=== PATIENT | male | born 1970 | race Caucasian/White ===

== ENCOUNTER 2022-07-23 09:08 | Outpatient (CLI) | payer OTHER, SELFPAY ==
[2022-07-23 11:38] LABS: Albumin* 4.7 g/dL (3.3-5.0); Chloride* 105 mmol/L (96-114); Sodium* 140 mmol/L (135-149)
[2022-07-23 11:39] LABS: Potassium* 4.5 mmol/L (3.6-5.1)
[2022-07-23 11:40] LABS: Cholesterol* 176 mg/dL (90-199)
[2022-07-23 11:41] LABS: Alkaline Phosphatase* 86 U/L (40-150); Aspartate Amino Transferase* 32 U/L (12-35); Bilirubin Total* 1.1 mg/dL (0.1-1.5); Blood Urea Nitrogen* 21 mg/dL (7-30); Carbon Dioxide* 26 mmol/L (20-32); Creatinine* 1.1 mg/dL (0.5-1.5); Estimated Glomerular Filt Rate 80 ml/min; Glucose* 153 mg/dL (60-115); Total Protein* 7.5 g/dL (6.0-8.3)
[2022-07-23 11:42] LABS: Alanine Aminotransferase* 47 U/L (4-50); Calcium* 9.1 mg/dL (8.4-10.6); HDL Cholesterol* 45 mg/dL (>=40); LDL Cholesterol Calculated 104 mg/dL (<100); Triglycerides* 133 mg/dL (40-149)
[2022-07-23 11:47] LABS: Creatinine Urine 273.3 mg/dL
[2022-07-23 11:48] LABS: Microalbumin Creatinine Ratio 0 mg/g (0-30); Microalbumin Urine < 1 mg/dL
[2022-07-23 12:13] LABS: PSA Screen* 0.68 ng/mL (0.10-4.00)
== END 2022-07-23 09:09 | disposition home or self-care (01) ==
PROVIDERS: PCP Family Medicine; Visit Provider Internal Medicine
DX: Z00.00 Encounter for general adult medical examination without abnormal findings (principal); E11.9 Type 2 diabetes mellitus without complications; I10 Essential (primary) hypertension; Z12.5 Encounter for screening for malignant neoplasm of prostate; Z13.6 Encounter for screening for cardiovascular disorders
CPT/HCPCS: 80053; 80061; 82043; 82570; 84153

== ENCOUNTER 2023-07-10 23:16 | Emergency (ER) | payer OTHER, SELFPAY ==
[2023-07-10 23:22] VITALS: BP 143/85; PULSE 89; RESP 20; TEMP 36.6; O2SAT 99; BMI 39.9
[2023-07-10] MEDS: LIDOCAINE 1% 5 ml (pf) 5 ML VIAL INJECTION (23:40)
--- NOTE | 2023-07-10 23:41 | ED.SKABFB ---
HPI - Skin/Abscess/Foreign Bdy General Date Seen: 07/10/23 Chief complaint: Skin/Abscess/Foreign Body Stated complaint: Infection on L Middle Finger Source: patient Mode of arrival: ambulatory Limitations: no limitations History of Present Illness HPI narrative: Patient is a 53-year-old male presenting to emergency department for infection to his left middle finger just lateral to the nail bed. States he 1st noticed the symptoms yesterday in the be getting worse today. Denies fevers, chills, pain with flexion or extension of the finger. States he does cut his fingernails very shortened thinks he has an ingrown fingernail. No other concerns at this time Related Data Home Medications Medication Instructions Recorded Confirmed aspirin 81 mg tablet,delayed 81 mg PO DAILY 08/07/22 07/10/23 release Previous Rx's Medication Instructions Recorded lisinopril 20 mg tablet 20 mg PO QDAY #90 tabs 08/07/22 Allergies Allergy/AdvReac Type Severity Reaction Status Date / Time No Known Allergies Allergy Unknown Verified 07/10/23 23:24 Review of Systems Narrative: Negative unless stated HPI PFSH PFSH Medical History Erectile dysfunction ?N52.9 - Male erectile dysfunction, unspecified (ICD-10) Anxiety ?F41.9 - Anxiety disorder, unspecified (ICD-10) Surgical History History of spinal fusion ?Z98.1 - Arthrodesis status (ICD-10) History of elbow surgery ?Z98.890 - Other specified postprocedural states (ICD-10) Status post cervical spinal fusion ?Z98.1 - Arthrodesis status (ICD-10) History of adenoidectomy ?Z90.89 - Acquired absence of other organs (ICD-10) Family History Father Coronary artery disease, Onset Age: 80 Sister Colonic polyp Social History Smoking Status: Never smoker Exam Narrative: Exam Narrative: Const: Well-nourished, Well-developed, in mild distress Eyes: PERRL, no conjunctival injection, and symmetrical lids HENT: Atraumatic external nose and ears. Moist mucous membranes. MSK:Extremities w/o deformity, Normal Active ROM Skin: Warm, Dry. Erythema and swelling at the edge of left middle finger nail bed Neuro: Normal Muscle tone, No focal neurological deficits. Psych: Awake, Alert, & Oriented x3. Appropriate mood and affect. Const: Vital Signs, click to edit/add: Vital Signs - 24 hr 07/10/23 23:22 Temperature 97.9 F Pulse Rate [Right Pulse Oximeter] 89 Respiratory Rate 20 Blood Pressure [Ri ght Upper Arm] 143/85 H Pulse Oximetry 99 Oxygen Delivery Me thod Room Air Course Vital Signs Vital signs: Initial Vital Signs Temperature 97.9 F 07/10/23 23:22 Temperature Source Temporal Artery Scan 07/10/23 23:22 Pulse Rate 89 07/10/23 23:22 Respiratory Rate 20 07/10/23 23:22 Blood Pressure 143/85 H 07/10/23 23:22 Blood Pressure Mean 104 07/10/23 23:22 Blood Pressure Position Sitting 07/10/23 23:22 Pulse Oximetry 99 07/10/23 23:22 Oxygen Delivery Method Room Air 07/10/23 23:22 Vital Signs Temperature 97.9 F 07/10/23 23:22 Pulse Rate 89 07/10/23 23:22 Respiratory Rate 20 07/10/23 23:22 Blood Pressure 143/85 H 07/10/23 23:22 Pulse Oximetry 99 07/10/23 23:22 Oxygen Delivery Method Room Air 07/10/23 23:22 Temperature 97.9 F 07/10/23 23:22 Pulse Rate 89 07/10/23 23:22 Respiratory Rate 20 07/10/23 23:22 Blood Pressure 143/85 H 07/10/23 23:22 Pulse Oximetry 99 07/10/23 23:22 Oxygen Delivery Method Room Air 07/10/23 23:22 MDM - Skin/Abscess/Foreign Bdy MDM Narrative Medical decision making narrative: Patient is 53-year-old male presenting for paronychia. Ultrasound was done neck cannot see any clear an obvious abscess pockets. I did remove the lateral edge of the nail bed where the paronychia was. When I removed the portion of the nail while mL of purulent material came out. The swelling that area went down greatly and is now soft. He tolerated this procedure well. I did start him on Augmentin. He is agreeable to for discharge. Patient was given strict return precautions for signs of worsening infection. Discharge Plan Discharge Clinical Impression: Paronychia Patient Disposition: Home, Self-Care Condition: Improved Instructions: Paronychia (ED) Additional Instructions: Take the Augmentin as directed. Return to the emergency department for signs of worsening infection Prescriptions: No Action aspirin 81 mg tablet,delayed release (DR/EC) 81 mg PO DAILY lisinopril 20 mg tablet 20 mg PO QDAY Qty: 90 3RF Follow Up/Referrals: Sky Reid MD [Primary Care Provider] - Stand Alone Forms: [facility] Info Instructions Procedures I/D Type: abscess Site: hand Post procedure diagnosis: Paronychia with abscess Name of person performing procedure: Venancio Em Side (if applicable): left Local Anesthetic: lidocaine 1% (Digital block) Amount of anesthesia used (mL): 5 Technique: other (Removed adjuvant ingrown fingernail) Amount of fluid expressed (mL): 1 Packing used?: none Estimated blood loss (if any): none
[2023-07-10 23:50] VITALS: BP 139/79; PULSE 85; RESP 20; TEMP 36.8; O2SAT 99
[2023-07-10 23:51] VITALS: BP 139/79; PULSE 85; RESP 20; TEMP 36.8
== END 2023-07-10 23:59 | disposition home or self-care (01) ==
PROVIDERS: Emergency Provider Student in an Organized Health Care Education/Training Program; PCP Internal Medicine
DX: L03.012 Cellulitis of left finger (principal)
CPT/HCPCS: 10060; 99282; 99283

== ENCOUNTER 2023-09-23 07:30 | Outpatient (CLI) | payer OTHER, SELFPAY ==
--- OUTSIDE RECORDS SUMMARY | 2023-09-23 15:38 | XMS_ITS | Clinical Summary ---
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 0 11/04/2021 Active Active Problems No known active problems Social History Tobacco Use Types Packs/Day Years Used Date Smoking Tobacco: Never Smokeless Tobacco: Current Snuff Social Connections Answer Date Recorded Frequency of Communication with Friends and Fami ly Not on file 07/20/2023 Sex and Gender Information Value Date Recorded Sex Assigned at Not on file Gender Identity Not on file Sexual Orientation Not on file Obstetrics History Last Filed Vital Signs Vital Sign Reading Time Taken Comments Blood Pressure 129/75 03/04/2006 8:00 AM CDT Pulse 81 03/04/2006 8:00 AM CDT Temperature 37 ??C (98.6 ??F) 03/04/2006 8:00 AM CDT Respiratory Rate 16 03/04/2006 8:00 AM CDT Oxygen Saturation 93% 03/04/2006 8:00 AM CDT Inhaled Oxygen Concentration - - Weight 104.2 kg (229 lb 11.5 oz) 03/03/2006 9:47 AM CDT Height 175 cm (5' 8.9) 03/03/2006 9:47 AM CDT Body Mass Index 34.02 03/03/2006 9:47 AM CDT Plan of Treatment Upcoming Encounters Date Type Department Care Team ([facility] st Contact Info) Description 04/15/2024 1:00 PM CDT Office Visit [facility] [address] [place] [address] Yanet Hansen, OD [address] [facility] [place] [address] Health Maintenance Due Date Last Done Comments COVID-19 vaccine series (#1) 1969 Tdap 1980 Depression screening for age 12+ 1981 HIV for age 15-65 1984 BMI (ht and wt on same day) for age 18+ 1987 Hepatitis C screening for ag e 18-79 1987 Tetanus booster 1989 Colonoscopy through age 75 2014 Lipids for age 45-75 2014 Zoster (shingles) series for age 50+ (1 of 2) 2019 Influenza for age 50-64 04/04/2023 Pneumococcal series for age 6-64 Aged Out No longer eligible based on patient's age to complete this topic Medical Devices Implanted Type Area Digital Marketing Analyst Device Identifier Shelf Expiration Date Model / Serial / Lot [id number] Bone [id number] [[id number] Implanted:Qty: 1 on 03/03/2006 at [facility] Explanted:at [facility] (Quantity not on file) Bone Implants Spine [employer] 10/04/2010 [id number] / [id number] / [id number] [id number] [[id number]] Implanted:Qty: 1 on 03/03/2006 at [facility] Explanted:at [facility] (Quantity not on file) Spine [employer] 12/13/[id number] / [id number] / Plate Cerv 25mm Premier - [id number] Implanted:Qty: 1 on 03/03/2006 at [facility] Spine [employer] [id number] / / Screw 4.0x16 - [id number] Implanted:Qty: 4 on 03/03/2006 at [facility] Spine [employer] [id number] / / Advance Directives Latest Code Status on File Code Status Date Activated Date Inactivated Comments Full Code 03/03/2006 2:32 PM 03/04/2006 1:34 PM Code Status History Code Status Date Activated Date Inactivated Comments Full Code 03/03/2006 8:15 AM 03/03/2006 2:32 PM Care Teams Fiberglass Tube Molder Relationship Specialty Start Date End Date Julio César Parikh MD [address] [place] [address] PCP - General Internal Medicine 01/18/22
== END 2023-09-23 07:31 | disposition home or self-care (01) ==
LOC: NFLDREF 15:34
PROVIDERS: PCP Internal Medicine; Referring Provider Internal Medicine; Visit Provider Internal Medicine
DX: I10 Essential (primary) hypertension (principal); Z12.5 Encounter for screening for malignant neoplasm of prostate; Z13.220 Encounter for screening for lipoid disorders
CPT/HCPCS: 80053; 80061; G0103

== ENCOUNTER 2024-10-21 09:00 | Outpatient (CLI) | payer OTHER, SELFPAY | END 2024-10-21 09:01 | disposition home or self-care (01) | LOC: NFLDREF 10-23 04:46 | PROVIDERS: PCP Internal Medicine; Referring Provider Internal Medicine; Visit Provider Internal Medicine | DX: I10 Essential (primary) hypertension (principal); E11.9 Type 2 diabetes mellitus without complications; N52.9 Male erectile dysfunction, unspecified; E78.5 Hyperlipidemia, unspecified; Z12.5 Encounter for screening for malignant neoplasm of prostate; Z72.0 Tobacco use | CPT/HCPCS: 80053; 80061; 82043; 82570; G0103 ==